=== PATIENT | female | born 1985 | race Caucasian/White ===

== ENCOUNTER 2022-01-27 13:09 | Outpatient (CLI) | payer BC, SELFPAY ==
--- NOTE | ~2022-01-27 | US_ITS ---
EXAMINATION: US right upper quadrant DATE: 01/27/2022 13:39 INDICATION: Right upper quadrant abdominal pain. TECHNIQUE: Multiple grayscale and Doppler ultrasound images of the abdomen were obtained. COMPARISON: CT abdomen and pelvis 09/15/2013 FINDINGS: The visualized portions of the head and body of the pancreas are normal. There is diffuse h epatic steatosis. No liver surface nodularity. There is normal flow in main portal vein. The gallblad nahum is normal in size. No gallstones or gallbladder wall thickening. There is no sonographic Walsh s ign. The common duct is normal and measures 3 mm. IMPRESSION: 1. Diffuse hepatic steatosis. Reviewed, dictated and finalized at location B.
== END 2022-01-27 13:10 | disposition home or self-care (01) ==
LOC: CHSIMG 13:12
PROVIDERS: PCP Family Medicine; Visit Provider Family Medicine
DX: R10.11 Right upper quadrant pain (principal)
CPT/HCPCS: 76705

== ENCOUNTER 2022-02-02 11:57 | Outpatient (CLI) | payer BC, SELFPAY ==
--- NOTE | ~2022-02-02 | NM_ITS ---
EXAMINATION: NM hepatobiliary w pharm DATE: 02/02/2022 13:58 INDICATION: Right upper quadrant abdominal pain. Elevated liver enzymes. COMPARISON: None. TECHNIQUE: 5.5 mCi Tc-99m mebrofenin (Choletec) was administered intravenously. Scintigraphic images of the abdomen were obtained for one hour. 1.86 mcg sincalide (Kinevac) was administered by slow int ravenous infusion, and imaging was continued for 30 minutes. Gallbladder ejection fraction was calcul ated by the technologist. FINDINGS: There is normal clearance of radiotracer from the blood pool. There is homogeneous tracer uptake by t he liver. Activity progresses to the gallbladder and bowel. The gallbladder ejection fraction (GBEF) is 54% (normal 10-90%, but most patient with gallbladder dysfunction have GBEF < 35% which does over lap with the normal range). IMPRESSION: 1. Normal hepatobiliary scan Reviewed, dictated and finalized at location B.
== END 2022-02-02 11:58 | disposition home or self-care (01) ==
LOC: CHSIMG 11:59
PROVIDERS: PCP Family Medicine; Visit Provider Family Medicine
DX: R10.11 Right upper quadrant pain (principal); R94.5 Abnormal results of liver function studies
CPT/HCPCS: 78227; A9537; J2805

== ENCOUNTER 2022-04-21 10:49 | Outpatient (CLI) | payer BC, SELFPAY ==
[2022-04-21 11:04] LABS: Basophils Absolute Auto 0.04 K/mm3 (0.00-0.10); Basophils Percent Auto 0.5 % (0.0-1.0); Eosinophils Absolute Auto 0.18 K/mm3 (0.02-0.50); Eosinophils Percent Auto 2.1 % (1.0-6.0); Hematocrit 45.4 % (35.0-49.0); Hemoglobin 15.2 g/dL (12.0-15.0); Immature Granulocyte Absolute 0.04 K/mm3 (0.00-0.00); Immature Granulocyte Percent A 0.5 % (0.0-0.0); Lymphocytes Absolute Auto 2.01 K/mm3 (1.10-4.50); Lymphocytes Percent Auto 23.7 % (18.0-42.0); Mean Corpuscular HGB Conc 33.5 g/dL (32.0-36.0); Mean Corpuscular Hemoglobin 32.1 pg (27.0-31.0); Mean Platelet Volume 9.3 fl (9.2-11.8); Monocytes Absolute Auto 0.64 K/mm3 (0.10-0.90); Monocytes Percent Auto 7.5 % (2.0-11.0); Neutrophils Absolute Auto 5.6 K/mm3 (1.7-7.2); Neutrophils Percent Auto 65.7 % (50.0-70.0); Platelet Count Result 338 K/mm3 (150-420); Red Blood Count 4.73 M/mm3 (4.20-5.40); Red Cell Distribution Width 13.1 % (11.6-14.4); White Blood Count 8.5 K/mm3 (4.8-10.8)
--- NOTE | 2022-04-21 11:05 | ECG_ITS ---
Measurements Intervals [place] Rate: 77 P: -4 MA: 132 QRS: 64 QRSD: 85 T: 20 QT: 360 QTc: 409 Interpretive Statements SINUS RHYTHM MINIMAL Q WAVES- INF/LAT LEADS BORDERLINE ECG Electronically Signed On 04-21-2022 12:02:59 CDT by Hunter Barron D.O.
[2022-04-21 11:10] LABS: Add Urine Microscopic? YES; Appearance Urine Clear (Clear); Bilirubin Urine Negative (Negative); Blood Urine 1+ (Negative); Color Urine Light Yellow (Yellow); Glucose Urine UA Negative (Negative); Ketones Urine Negative (Negative); Leukocyte Esterase Ur Negative LEU/UL (Negative); Nitrate Urine Negative (Negative); Protein Urine Negative (Negative); Specific Grav Ur <= 1.005 (1.010-1.020); Urobilinogen Urine 0.2 mg/dL (0.2-1.0)
[2022-04-21 11:17] LABS: D Dimer 0.33 mg/L (0.19-0.50)
[2022-04-21 11:21] LABS: Bacteria Urine 1+ /hpf; Squamous Epithelial Cell Urine Few /hpf (Few); WBC Urine None seen /hpf (0-3)
[2022-04-21 11:31] LABS: Alanine Aminotransferase 105 U/L (14-59); Albumin Level 3.9 g/dL (3.4-5.0); Alkaline Phosphatase 77 U/L (46-116); Amylase 71 U/L (25-115); Anion Gap 9 mmol/L (8-16); Aspartate Amino Transferase 55 U/L (15-37); Bilirubin,Total 0.7 mg/dL (0.00-1.00); Blood Urea Nitrogen 8 mg/dL (7-18); Calcium 9.9 mg/dL (8.5-10.1); Carbon Dioxide 26 mmol/L (21-32); Chloride 103 mmol/L (98-108); Creatine Kinase 72 U/L (26-192); Estimated Glomerular Filt Rate > 60; Glucose 99 mg/dL (70-99); Lipase 120 U/L (73-393); Osmolality Calculated 284 mOsm/kg (285-295); Potassium 4.1 mmol/L (3.5-5.1); Sodium 138 mmol/L (136-145); Thyroid Stimulating Hormone 2.69 uIU/mL (0.36-3.74); Total Protein 7.9 g/dL (6.4-8.2); Troponin I 7.2 ng/L (0.00-60.4); Uric Acid 6.3 mg/dL (2.6-6.0)
[2022-04-21 11:32] LABS: CRP < 0.2 mg/dL (0.0-0.9)
[2022-04-21 13:52] LABS: Ferritin 269 ng/mL (8-252)
== END 2022-04-21 10:50 | disposition home or self-care (01) ==
LOC: CHSCARD 10:52
PROVIDERS: PCP Family Medicine; Visit Provider Nurse Practitioner Family
DX: R10.9 Unspecified abdominal pain (principal); R07.9 Chest pain, unspecified; R94.5 Abnormal results of liver function studies; R31.9 Hematuria, unspecified
CPT/HCPCS: 36415; 80053; 81001; 82150; 82550; 82553; 82728; 83690; 84443; 84484; 84550; 85025; 85380; 86140; 88112; 88175; 93005; G0145

== ENCOUNTER 2022-04-27 07:18 | Outpatient (CLI) | payer BC, SELFPAY ==
--- NOTE | ~2022-04-27 | CT_ITS ---
EXAMINATION: CT abdomen pelvis w con DATE: 04/27/2022 08:24 INDICATION: Painful lump at the anterolateral right upper quadrant. Hematuria. TECHNIQUE: Computed tomography (CT) of the abdomen and pelvis was performed with 100 mL Omnipaque-300 intravenous contrast. Automated exposure control and iterative reconstruction technique were employe d. The dose-length product was 1127.52 mGy-cm. COMPARISON: 09/15/13 FINDINGS: Lung bases are clear. Heart size is normal. No pericardial or pleural effusion. Liver, gallbladder, s pleen, pancreas and bilateral adrenal glands are normal. Small region of cortical scarring at the upp er poles of both kidneys. 7 mm left renal cyst. 5.2 cm right adnexal cyst. T-shaped IUD in expected p osition within the anteverted uterus. Left adnexa and bladder are normal. No bowel obstruction. Amy l appendix. Mild diffuse fatty infiltration of the wall of the colon likely related to body habitus. No free intraperitoneal gas or fluid. No pathologically enlarged abdominal or pelvic lymphadenopathy. Mild thoracic spondylosis. IMPRESSION: 1. No acute intra-abdominal/pelvic process. 2. 5.2 cm right adnexal cyst. Consider 6-8 week follow-up pelvic ultrasound. 3. IUD in expected position. Reviewed, dictated and finalized at location A.
== END 2022-04-27 07:19 | disposition home or self-care (01) ==
LOC: CHSIMG 07:19
PROVIDERS: PCP Family Medicine; Visit Provider Nurse Practitioner Family
DX: R10.9 Unspecified abdominal pain (principal); R19.01 Right upper quadrant abdominal swelling, mass and lump
CPT/HCPCS: 74177; Q9967

== ENCOUNTER 2022-05-11 01:33 | Day surgery (SDC) | payer BC, SELFPAY ==
[2022-04-27 10:49] VITALS: BMI 38.3
--- NOTE | 2022-05-08 10:32 | SUR.PREOP ---
spoke with the patient regarding her prep and the magnesium citrate recall. Instructed patient to not take the magnesium citrate. Patient voiced understanding.
[2022-05-11 09:10] VITALS: BP 117/79; PULSE 85; RESP 18; TEMP 37.2; O2SAT 100
[2022-05-11] MEDS: LACTATED RINGERS 1,000 ML 150 ML IV CONT (09:12)
--- NOTE | 2022-05-11 09:41 | PM.IMHP ---
H&P: HPI History of Present Illness Date/Time: 05/11/22 09:41 Chief Complaint: Right upper quadrant pain. Narrative: This is a 36-year-old white female patient who presents for colonoscopy EGD. Patient has had episodes of right upper quadrant cramping pain. Gallbladder workup including ultrasound HIDA scan are normal. Patient empirically was given PPI therapy for possible ulcer disease with no change in symptoms. She does report chronic loose stools. She was advised to add fiber to her diet but not has not yet accomplished this. She denies any fever. Has had no bleeding. Patient has fatty liver with elevated LFTs. Currently trying to lose weight. She recently implemented a low fat diet. Review of Systems Review of Systems: Review of systems noncontributory. [facility] Past Medical History Medical History (Updated 05/11/22 @ 09:44 by Toni Ragland MD) Abdominal mass Abscess delivery delivered Chronic diarrhea Elevated liver enzymes Hepatic steatosis Obesity RUQ abdominal pain Family History Family History (Updated 03/06/22 @ 15:18 by Lizbeth Patterson MA) Mother Ulcerative colitis Thyroid disease Social History Social History (Updated 03/06/22 @ 15:13 by Lizbeth Patterson MA) Smoking status: Never smoker Second hand tobacco smoke exposure: No Alcohol intake: current Alcohol use details: weekends Substance use: never Living arrangements: with family Gender identity (if verbalized by the patient): Female Meds Home Medications and Allergies Home Medications Medication Instructions Recorded Confirmed Type omeprazole 40 mg capsule,delayed 40 mg PO BID 04/27/22 05/11/22 History release Allergies Allergy/AdvReac Type Severity Reaction Status Date / Time No Known Allergies Allergy Unknown Verified 05/11/22 09:09 Vital Signs Vital Signs - 24 hr 05/11/22 09:10 Temperature 98.9 F Pulse Rate 85 Respiratory Rate 18 Blood Pressure 117/79 Pulse Oximetry 100 Oxygen Delivery Room Air Exam Narrative: Physical exam reveals patient to be alert. Vital signs stable. HEENT exam is unremarkable. Patient is anicteric. Lungs are clear to auscultation and percussion. Heart is without murmur or extra sounds. Abdominal exam bowel sounds present soft nontender with no hepatosplenomegaly. Patient is overweight. Assessment and Plan Assessment and plan (1) RUQ abdominal pain: Code(s): R10.11 - Right upper quadrant pain Status: Acute Assessment and Plan: Patient with episodic right upper quadrant cramping pain of uncertain nature. Plan to add a high-fiber diet for the possibility of bowel syndrome. GI endoscopy is been requested. Further recommendations may be given after endoscopy. (2) Obesity: Code(s): E66.9 - Obesity, unspecified Status: Acute Assessment and Plan: Patient is overweight. Likely this contributes to MANRIQUE. This likely accounts for elevated LFTs. Weight loss with calorie restriction increase activity are encouraged. (3) Hepatic steatosis: Code(s): K76.0 - Fatty (change of) liver, not elsewhere classified Status: Acute Assessment and Plan: Fatty liver appears to account for elevated LFTs. Weight loss and calorie restriction suggeses, . Follow-up LFTs annually suggested (4) Loose stools: Code(s): R19.5 - Other fecal abnormalities Status: Acute Assessment and Plan: patient with loose stools may represent irritable bowel syndrome. Fiber supplementation is suggested. Colonoscopy is requested will be performed.
--- NOTE | 2022-05-11 10:18 | P.PNAN_ITS ---
Anes - Initial Pre Proc Eval Procedure: Operation Date: 05/11/22 10:30 Proposed Procedures p Esophagogastroduodenoscopy & Colonoscopy - Toni Ragland MD Date/Time: 05/11/22 10:18 Surgeon: Toni Ragland MD Pre Op Diagnosis: RUQP, loose stools, colitis Patient Data Age: 36 Gender: F Height: 1.55 m Weight: 89.2 kg Last Vital Signs Temp 98.9 F 05/11/22 09:10 Pulse 85 05/11/22 09:10 Resp 18 05/11/22 09:10 BP 117/79 05/11/22 09:10 Pulse Ox 100 05/11/22 09:10 O2 Del Method Room Air 05/11/22 09:10 Allergies Allergy/AdvReac Type Severity Reaction Status Date / Time No Known Allergies Allergy Unknown Verified 05/11/22 09:09 Home Medications Medication Instructions Recorded Confirmed Type omeprazole 40 mg capsule,delayed 40 mg PO BID 04/27/22 05/11/22 History release Patient hx anesthesia problems: none Family hx anesthesia problems: none Results Review: All pre-operative results and documents have been reviewed as part of the pre- operative evaluation. [facility] Past Medical History Medical History (Updated 05/11/22 @ 09:44 by Toni Ragland MD) Abdominal mass Abscess delivery delivered Chronic diarrhea Elevated liver enzymes Hepatic steatosis Obesity RUQ abdominal pain Family History Family History (Updated 03/06/22 @ 15:18 by Lizbeth Patterson MA) Mother Ulcerative colitis Thyroid disease Social History Social History (Updated 03/06/22 @ 15:13 by Lizbeth Patterson MA) Smoking status: Never smoker Second hand tobacco smoke exposure: No Alcohol intake: current Alcohol use details: weekends Substance use: never Living arrangements: with family Gender identity (if verbalized by the patient): Female Anes - Eval Final PreProcedure Day of Procedure 05/11/22 10:18 Patient weight: obese Heart: regular rate and rhythm Lungs: clear to auscultation Airway: Mallampati scale class II Neurological: alert and oriented Last oral intake: >/= 8 hours ASA classification: II Emergent: no Anesthetic plan: proceed Anesthesia type and monitoring: general GIVS Results Review: All pre-operative results and documents have been reviewed as part of the pre- operative evaluation. Informed Consent: The patient's anesthetic plan and its attendant risks and benefits were discuss ed with the patient/family/POA. Questions were solicited and answers provided to the satisfaction of the patient/family/POA.
--- NOTE | 2022-05-11 10:40 | SUR.OPER ---
EGD ended at 1039, Colonoscopy began at 1043.
[2022-05-11 10:58] VITALS: BP 129/73; PULSE 82; RESP 23; O2SAT 100
[2022-05-11 11:08] VITALS: BP 115/71; PULSE 75; RESP 14; O2SAT 100
[2022-05-11 11:18] VITALS: BP 104/74; PULSE 62; RESP 20; O2SAT 100
== END 2022-05-11 11:22 | disposition home or self-care (01) ==
PROVIDERS: PCP Family Medicine; Visit Provider Internal Medicine Gastroenterology
PROC: 0DJ08ZZ Inspection of Upper Intestinal Tract, Via Natural or Artificial Opening Endoscopic (ICD-10-PCS; CPT 43235; principal; 2022-05-11 10:30)
DX: R10.11 Right upper quadrant pain (principal); R19.5 Other fecal abnormalities; K64.8 Other hemorrhoids; K76.0 Fatty (change of) liver, not elsewhere classified; R74.01 Elevation of levels of liver transaminase levels; E66.9 Obesity, unspecified; Z68.37 Body mass index [BMI] 37.0-37.9, adult
CPT/HCPCS: 45380; 43235; 88305; J2704; J7120

== ENCOUNTER 2022-06-16 07:22 | Outpatient (CLI) | payer BC, SELFPAY ==
--- NOTE | ~2022-06-16 | US_ITS ---
EXAMINATION: US pelvic complete DATE: 06/16/2022 09:21 INDICATION: Right adnexal cyst. TECHNIQUE: Multiple transabdominal and transvaginal sonographic images of the pelvis were obtained. COMPARISON: CT abdomen and pelvis 04/27/2022 FINDINGS: TRANSABDOMINAL ULTRASOUND: The uterus measures 10.8 x 3.3 x 3.8 cm. There is no free fluid in the pelvis. TRANSVAGINAL ULTRASOUND: The endometrial complex measures 8 mm in thickness. There is an intrauterine device in expected posit ion. The right ovary measures 2.3 x 2.2 x 1.4 cm. The left ovary measures 3.2 x 2.0 x 2.9 cm. There i s normal vascular flow in the ovaries. IMPRESSION: 1. Interval resolution of the right adnexal cyst. Normal ovaries. 2. Intrauterine device in expected position. Reviewed, dictated and finalized at location A.
== END 2022-06-16 07:23 | disposition home or self-care (01) ==
LOC: CHSIMG 07:23
PROVIDERS: PCP Family Medicine; Visit Provider Family Medicine
DX: N94.9 Unspecified condition associated with female genital organs and menstrual cycle (principal)
CPT/HCPCS: 76856

== ENCOUNTER 2023-03-08 09:50 | Emergency (ER) | payer BC, SELFPAY ==
--- NOTE | ~2023-03-08 | XR_ITS ---
EXAMINATION: XR foot RT min 3V DATE: 03/08/2023 10:05 INDICATION: Right foot injury and deformity. TECHNIQUE: 4 views of right foot were obtained. COMPARISON: None. FINDINGS: There is a comminuted intra-articular fracture of base of fifth metatarsal with rotation an d displacement of fracture fragments. There is mild osteoarthritis of talonavicular joint. IMPRESSION: 1. Comminuted intra-articular fracture of base of fifth metatarsal. Reviewed, dictated and finalized at location A.
--- NOTE | ~2023-03-08 | XR_ITS ---
EXAMINATION: XR ankle RT min 3V DATE: 03/08/2023 10:06 INDICATION: Right ankle injury. TECHNIQUE: 4 views of right ankle were obtained. COMPARISON: None. FINDINGS: There is a comminuted intra-articular fracture of base of fifth metatarsal. There is mild o steoarthritis of talonavicular joint. IMPRESSION: 1. Comminuted intra-articular fracture of base of fifth metatarsal. Reviewed, dictated and finalized at location A.
[2023-03-08 09:54] VITALS: BP 121/78; PULSE 87; RESP 17; TEMP 36.8; O2SAT 97
--- NOTE | 2023-03-08 09:54 | ED.GENADULT ---
HPI - General Adult General Chief complaint: Extremity Injury, Lower Stated complaint: R foot injury Time Seen by Provider: 03/08/23 09:51 History of Present Illness HPI narrative: Sherry is a 37F with a PMH of obesity, and hepatic steatosis that presented to the ED after rolling her right ankle and falling just before coming to the hospital. She how has intermittent pain on the right side of her ankle and foot. no other injuries reported. Related Data Home Medications Medication Instructions Recorded Confirmed omeprazole 40 mg capsule,delayed 40 mg PO BID 04/27/22 03/08/23 release escitalopram oxalate 10 mg tablet 10 mg PO DAILY 03/08/23 03/08/23 Allergies Allergy/AdvReac Type Severity Reaction Status Date / Time No Known Allergies Allergy Unknown Verified 03/08/23 09:53 Review of Systems Review of Systems: ROS unobtainable: Yes unobtainable due to endotracheal tube PMFSH Past Medical History Medical History Abdominal mass Abscess delivery delivered Chronic diarrhea Elevated liver enzymes Hepatic steatosis Obesity RUQ abdominal pain Family History Family History Mother Ulcerative colitis Thyroid disease Social History Social History Smoking status: Never smoker Second hand tobacco smoke exposure: No Alcohol intake: current Alcohol use details: weekends Substance use: never Living arrangements: with family Occupation/Education: occupation Gender identity (if verbalized by the patient): Female Exam Const: General: healthy appearing and no acute distress Nutritional Appearance: well nourished Orientation/consciousness: patient oriented x3 HENMT: Head: normal to inspection Ears: external ears normal Eyes: Conjunctivae: conjunctivae normal Pupils: Equal, round and reactive pupils present Neck: Neck: normal visual inspection Chest: Chest palpation & inspection: normal inspection of the chest Resp: Effort & Inspection: normal respiratory effort Cardio: Rate: regular rate Skin: General skin exam: normal color Wounds: no wounds Neuro: General: patient oriented x3 and moves all extremities Extrem: Other: right foot was a little swollen and TTP. Normal ROM Psych: Mental Status: mental status grossly normal Course Course Emergency Course: Ordered Toradol for pain and radiographs. EXAMINATION: XR foot RT min 3V DATE: 03/08/2023 10:05 INDICATION: Right foot injury and deformity. TECHNIQUE: 4 views of right foot were obtained. COMPARISON: None. FINDINGS: There is a comminuted intra-articular fracture of base of fifth metatarsal with rotation and displacement of fracture fragments. There is mild osteoarthritis of talonavicular joint. IMPRESSION: 1. Comminuted intra-articular fracture of base of fifth metatarsal. She was given a list of local orthopedic surgeons and told to make an appt tomorrow Vital Signs Vital signs: Vital Signs Temperature 98.3 F 03/08/23 09:54 Pulse Rate 87 03/08/23 09:54 Respiratory Rate 17 03/08/23 09:54 Blood Pressure 121/78 03/08/23 09:54 Pulse Oximetry 97 03/08/23 09:54 Oxygen Delivery Room Air 03/08/23 09:54 Temperature 98.3 F 03/08/23 09:54 Pulse Rate 87 03/08/23 09:54 Respiratory Rate 17 03/08/23 09:54 Blood Pressure 121/78 03/08/23 09:54 Pulse Oximetry 97 03/08/23 09:54 Oxygen Delivery Room Air 03/08/23 09:54 Medical Decision Making Vital Signs Vital Signs: Vital Signs Temperature 98.3 F 03/08/23 09:54 Pulse Rate 87 03/08/23 09:54 Respiratory Rate 17 03/08/23 09:54 Blood Pressure 121/78 03/08/23 09:54 Pulse Oximetry 97 03/08/23 09:54 Oxygen Delivery Room Air 03/08/23 09:54 Temperature 98.3 F 03/08/23 09:54 Pulse Rate 87 03/08/23 09:54 Respiratory Rate 17
[2023-03-08] MEDS: KETOROLAC 30 MG/ML VIAL (*BKC) IM (10:16)
[2023-03-08 10:29] VITALS: BP 121/78; PULSE 87; RESP 17; TEMP 36.8; O2SAT 97
== END 2023-03-08 10:34 | disposition home or self-care (01) ==
LOC: CHSED 10:28
PROVIDERS: Emergency Provider Family Medicine; PCP Family Medicine
DX: S92.351A Displaced fracture of fifth metatarsal bone, right foot, initial encounter for closed fracture (principal); W19.XXXA Unspecified fall, initial encounter
CPT/HCPCS: 73610; 73630; 96372; 99283; J1885; L2112

== ENCOUNTER 2023-03-15 08:25 | Outpatient (CLI) | payer BC, SELFPAY ==
--- NOTE | ~2023-03-15 | XR_ITS ---
XR foot RT min 3V DATE: 03/15/2023 08:46 INDICATION: Preoperative evaluation; fifth metatarsal base fracture TECHNIQUE: 4 views COMPARISON: 03/08/2023 right foot FINDINGS: Comminuted intra-articular fracture of the base of the fifth metatarsal with lateral displa cement and rotation of fracture fragments is again noted without significant interval change in posit ion or alignment since 03/08/2023. No other significant change is noted. IMPRESSION: Comminuted intra-articular mildly displaced and rotated fracture of the base of the fifth metatarsal bone Reviewed, dictated and finalized at location A.
== END 2023-03-15 08:26 | disposition home or self-care (01) ==
LOC: CHSIMG 08:27
PROVIDERS: PCP Family Medicine; Visit Provider Orthopaedic Surgery
DX: S92.351A Displaced fracture of fifth metatarsal bone, right foot, initial encounter for closed fracture (principal)
CPT/HCPCS: 73630

== ENCOUNTER 2023-04-26 08:08 | Outpatient (CLI) | payer BC, SELFPAY ==
--- NOTE | ~2023-04-26 | XR_ITS ---
XR foot RT min 3V DATE: 04/26/2023 08:23 INDICATION: Right foot fracture 6 weeks ago. Generalized aching foot pain. TECHNIQUE: 4 views COMPARISON: 03/15/2023 right foot FINDINGS: There is no significant change in position or alignment of the comminuted intra-articular r otated fracture of the base of the fifth metatarsal bone. The fracture lines are less lucent, consist ent with some interval healing. Os tibiale externum No other recent fracture or dislocation, periosteal reaction or bone destruction or erosive change is noted. IMPRESSION: Healing comminuted intra-articular rotated fracture of the base of the fifth metatarsal b one Reviewed, dictated and finalized at location B. IMPRESSION: Healing comminuted intra-articular rotated fracture of the base of the fifth metatarsal bone
== END 2023-04-26 08:09 | disposition home or self-care (01) ==
LOC: CHSIMG 08:10
PROVIDERS: PCP Family Medicine; Visit Provider Orthopaedic Surgery
DX: S92.351D Displaced fracture of fifth metatarsal bone, right foot, subsequent encounter for fracture with routine healing (principal); M79.671 Pain in right foot
CPT/HCPCS: 73630

== ENCOUNTER 2023-05-24 08:07 | Outpatient (CLI) | payer BC, SELFPAY ==
--- NOTE | ~2023-05-24 | XR_ITS ---
EXAMINATION: XR foot RT min 3V DATE: 05/24/2023 08:19 INDICATION: Right foot fracture and pain. TECHNIQUE: 3 views of right foot were obtained. COMPARISON: Right foot radiographs 04/26/2023, 03/08/2023 FINDINGS: There is a comminuted fracture of base of fifth metatarsal. The main proximal fracture frag ment demonstrates rotation. Some of the fracture lines are obscured, consistent with healing. There i s mild osteoarthritis of first metatarsophalangeal joint and some of the midfoot joints. There is an enthesophyte at posterior aspect of calcaneal tuberosity. IMPRESSION: 1. Healing comminuted fracture of base of fifth metatarsal. Reviewed, dictated and finalized at location A.
== END 2023-05-24 08:08 | disposition home or self-care (01) ==
LOC: CHSIMG 08:08
PROVIDERS: PCP Family Medicine; Visit Provider Orthopaedic Surgery
DX: M79.671 Pain in right foot (principal); S92.351D Displaced fracture of fifth metatarsal bone, right foot, subsequent encounter for fracture with routine healing
CPT/HCPCS: 73630

== ENCOUNTER 2023-08-17 07:54 | Outpatient (CLI) | payer BC, SELFPAY ==
--- NOTE | ~2023-08-17 | MMUS_ITS ---
EXAMINATION: MM diagnostic jose BI w justina, US breast BI complete HISTORY: Follow-up right breast asymmetry TECHNIQUE: Additional 3-D tomosynthesis images of the breasts were performed and synthetic 2-D images were generated. CAD analysis was submitted and interpreted. High resolution bilateral complete breas t ultrasound was performed. COMPARISON: None BREAST PARENCHYMAL COMPOSITION: Breast composition is almost entirely fatty FINDINGS: MAMMOGRAPHIC FINDINGS: There are focal asymmetries superiorly in the right breast on MLO and mediolateral views which are le ss apparent with spot compression views, likely superimposed fibroglandular tissue. No mammographic e vidence for malignancy in the left breast. ULTRASOUND: Complete bilateral US of all 4 quadrants of the breasts and retroareolar region was reviewed. At 10:00, 6 cm from the nipple, there is a 5 mm cyst. No suspicious masses are identified in either b reast to suggest malignancy. IMPRESSION: 1. No evidence for malignancy in either breast. Benign finding. 2. Routine yearly screening mammogram and regular clinical breast examination are recommended. BI-RADS Category 2: Benign finding(s). Reviewed, dictated and finalized at location A. [employer] IMPRESSION: 1. No evidence for malignancy in either breast. Benign finding. 2. Routine yearly screening mammogram and regular clinical breast examination a re recommended. BI-RADS Category 2: Benign finding(s).
== END 2023-08-17 07:55 ==
PROVIDERS: PCP Nurse Practitioner; Visit Provider Nurse Practitioner
DX: N64.59 Other signs and symptoms in breast (principal)
CPT/HCPCS: 76641; 77062; 77066; G0279